=== PATIENT | female | born 1995 | race African-American/Black ===

== ENCOUNTER 2022-01-07 15:28 | Emergency (ER) | payer MEDICAID ==
[~2022-01-07] VITALS: Ht 157.5 cm; Wt 73.0 kg
[2022-01-07 16:23] VITALS: BP 129/76
== END 2022-01-08 02:00 | disposition home or self-care (01) ==
LOC: ER 15:28
DX: R51.9 Headache, unspecified (principal); R04.0 Epistaxis; V43.62XA Car passenger injured in collision with other type car in traffic accident, initial encounter; W22.12XA Striking against or struck by front passenger side automobile airbag, initial encounter; Y93.89 Activity, other specified; Y92.488 Other paved roadways as the place of occurrence of the external cause
CPT/HCPCS: 70486; 81025; 99284